=== PATIENT | male | born 1960 | race Two or more races ===

== ENCOUNTER 2024-07-04 19:20 | Emergency (ER) | payer MEDICAID, SELFPAY ==
[2024-07-04 19:39] VITALS: BP 169/88; PULSE 76; RESP 18; TEMP 36.5; O2SAT 98
--- NOTE | 2024-07-04 20:02 | PD.EDWOUND ---
ED Wound/Laceration-RME/HPI General Chief Complaint: Wound/Laceration Stated Complaint: LEFT THUMB LACERATION Time Seen by Provider: 07/04/24 20:00 Arrival date/time: 07/04/24 19:20 64M with no significant PMH presents to ED with multiple L thumb lacs after he accidentally cut himself. Patient has not had a tetanus shot in the past 5 years. Limitations: no limitations Related Data Previous Rx's ?Medication ?Instructions ?Recorded doxycycline hyclate 100 mg tablet 100 mg PO BID 7 days #14 tabs 07/04/24 Allergies Allergy/AdvReac Type Severity Reaction Status Date / Time No Known Allergies Allergy Verified 07/04/24 22:10 Review of Systems Review of Systems Systems Reviewed: All systems reviewed, normal except as documented Constitutional Constitutional: Reports system reviewed and no additional complaints, except as documented, Denies fever(s) and Denies headache(s) ENT Ears, Nose, Mouth, and Throat: Denies disequilibrium and Denies headache(s) Cardiovascular Cardiovascular: Reports system reviewed and no additional complaints, except as documented, Denies chest pain and Denies dyspnea Respiratory Respiratory: Reports system reviewed and no additional complaints, except as documented, Denies cough and Denies dyspnea Gastrointestinal Gastrointestinal: Reports system reviewed and no additional complaints, except as documented, Denies abdominal pain, Denies nausea and Denies vomiting Integumentary/Breasts Skin/Breast: Reports as per HPI and Reports skin pain Neurologic Neurologic: Reports system reviewed and no additional complaints, except as documented, Denies confusion, Denies disequilibrium and Denies headache(s) Psychiatric Psychiatric: Denies confusion Past Medical History Social History SMOKING STATUS: Current every day smoker ED Exam General Limitations: Present no limitations General appearance: Present alert and in no apparent distress Head Head exam: Present atraumatic Eye Eye exam: Present normal appearance, PERRL and EOMI ENT ENT exam: Present normal exam, normal oropharynx and mucous membranes moist Neck Neck exam: Present normal inspection, full ROM and trachea midline Chest Chest inspection: Present normal inspection and symmetric chest wall rise Respiratory Respiratory exam: Present normal lung sounds bilaterally Cardiovascular Cardiovascular exam: Present regular rate, normal rhythm and normal heart sounds Abdominal Exam Abdominal exam: Present soft and normal bowel sounds Extremities Exam Extremities exam: Present full ROM Expanded Upper Extremity Exam Hand exam: Present full ROM and laceration (R thumb 3 1 cm lacs with some flaps) Back Exam Back exam: Present normal inspection and full ROM Neurological Exam Neurological exam: Present alert, oriented X3 and CN II-XII intact Psychiatric Psychiatric exam: Present normal affect and normal mood Skin Skin exam: Present warm, dry, intact and normal color Course Quality Measures none Orders Category Date Time Status Set Up Suture Tray STAT Care 07/04/24 20:01 Completed Wound Care NOW Care 07/04/24 20:01 Completed Tet,Diphth,Pertuss(Acell)-Tdap [Boostrix Vacc] Med 07/04/24 20:01 Discontinued 0.5 ml IMI .ONCE ONE Vital Signs Vital signs: Vital Signs Temperature 97.7 F 07/04/24 19:39 Pulse Rate 76 07/04/24 19:39 Respiratory Rate 18 07/04/24 19:39 Blood Pressure 169/88 H 07/04/24 19:39 Pulse Oximetry (%) 98 07/04/24 19:39 Oxygen Delivery Method Room Air 07/04/24 19:39 O2 at 98% on RA and WNLs Wound / Laceration MDM Narrative MDM Narrative:: 64M with no significant PMH presents to ED with multiple L thumb lacs after he accidentally cut himself. Patient has not had a tetanus shot in the past 5 years. Physical exam reveals 3 1 cm lacs on R thumb with some flaps. ROM intact. Patient is afebrile, calm, and alert. Wounds cleaned/irrigated and closed by colleague KAYLIE Lyn (see procedures notes). Given educational guidance counselor to have them removed in about 14 days. Tdap given. Will give ABX prophylaxis given multiple wounds. Patient data External records reviewed:: None Clinical information provided by:: patient Social determinants that could affect healthcare access:: none Patient has the following chronic illnesses:: none How is presenting disease/condition affected by chronic disease/condition?: no chronic disease Evaluation data The following diagnostics were reviewed and interpreted by me:: other (specify) (none) Lab and/or radiology exams considered but not ordered:: not ordered Interpretation Summary: n/a Medications / Prescriptions Medications or Prescriptions considered but not ordered:: ordered Medication administrations:: Medication Administration History Discontinued Medications Diphtheria/Tetanus/Acell Pertussis (Diphth,Pertuss(Acell),Tet Vac 0.5 Ml Syr- Adult) 0.5 ml IMi .ONCE ONE Stop: 07/04/24 20:02 Last Admin: 07/04/24 22:17 Dose: 0.5 ml Documented By: MP above Consultations Consultation(s) initiated? (list below): No Diagnosis Wound Differential Diagnosis: laceration, abrasion and avulsion of skin Most likely diagnosis given after review of the tests above:: laceration Admission Indicated Admission indicated?: not indicated Admission Request Was there a request for admission?: No Disposition Plan Disposition Plan: Discharge Discharge Attestation Discharge Attestation: The patient and all family members were given an opportunity to ask questions and understood the discharge instructions. Discharge instructions specifically effects, indications for sooner follow up or return to the emergency department, and the expected course of current diagnosis. Patient condition: Stable Discharge Plan Plan Patient Disposition: HOME (Self Care) Disposition Comment: Stable Prescriptions/Referrals Prescriptions/Med Rec: New doxycycline hyclate 100 mg tablet 100 mg PO BID 7 Days Qty: 14 0RF Referrals: No Primary/Family,Physician [Primary Care Provider] - In 1 week Problem List Clinical Impression: Laceration Patient/Caregiver Discharge Instructions Additional Instructions: Please follow-up with PCP within 24-48 hours and return immediately if symptoms worsen. Have stitches removed in about 14 days. Print Language: Frisian Stand Alone Forms: Patient Portal Info Letter RICHY/IRENE Supervising Physician RICHY/IRENE Supervising Physician: Dr. Chopra
--- NOTE | 2024-07-04 22:03 | PD.EDADDENDU ---
Emergency Room Addendum Addendum Narrative: Laceration procedure. Verbal consent obtained, site was inspected patient has 2 lacerations the first 1 is in the medial aspect of the middle of the thumb approximately 2 cm stellate in nature and the second 1 is semilunar 2 cm the distal portion on the volar surface of the thumb. Anesthesia 1% lidocaine with epinephrine injected at the base of the thumb on medial and lateral sided instigating a digital block. Site was then cleaned and probed no foreign body was finds out some of the superficial abrasions were dressed, then laceration #1 and 3 interrupted sutures of 3-0 Ethilon with good approximation without complication patient tolerated the procedure well, LAC #2 had 2 interrupted sutures of 3-0 Ethilon with good approximation patient tolerated the procedure well a bulky dressing was applied. Patient informed that the sutures need to come out in 12 to 14 days. Any signs of infection return the emergency room for reevaluation.
[2024-07-04] MEDS: DIPHTH,PERTUSS(ACELL),TET VAC 0.5 ML SYR- ADULT IMi (22:17)
== END 2024-07-04 22:21 | disposition home or self-care (01) ==
PROVIDERS: Emergency Provider Emergency Medicine
DX: S61.012A Laceration without foreign body of left thumb without damage to nail, initial encounter (principal); W45.8XXA Other foreign body or object entering through skin, initial encounter; Z23 Encounter for immunization
CPT/HCPCS: 12002; 90471; 90715; 99283